=== PATIENT | female | born 1980 | race Caucasian/White ===

== ENCOUNTER 2021-04-18 09:52 | Outpatient (CLI) | payer OTHER | END 2021-04-18 09:53 | disposition home or self-care (01) | LOC: BICRAD 09:52 | PROVIDERS: ATTEND Family Medicine | DX: M54.32 Sciatica, left side (principal) | CPT/HCPCS: 72100 ==

== ENCOUNTER 2021-10-08 10:05 | Inpatient (IN) | payer OTHER ==
[2021-10-08] MEDS ORDERED: Morphine 4 MG/ML VIAL ONE ×2 (10:52→12:32)
[2021-10-08] MEDS ORDERED: Ketorolac Tromethamine 30 MG/ML VIAL ONE (10:52)
[2021-10-08] MEDS ORDERED: Ondansetron PF 4 MG/2 ML Vial IVP PRN (12:41)
[2021-10-08] MEDS ORDERED: Acetaminophen/Codeine 30-300mg Tablet PO PRN (12:41)
[2021-10-08] MEDS ORDERED: Acetaminophen 325 MG TAB PO PRN (12:41)
[2021-10-08] MEDS ORDERED: traMADol HCl 50 MG TAB PO PRN (12:41)
[2021-10-08] MEDS ORDERED: Morphine 2 MG/ML VIAL SLOW IVP PRN (12:41)
[2021-10-08] MEDS ORDERED: Dexamethasone 4 mg/ml Vial SLOW IVP SCH (12:45)
[2021-10-08] MEDS ORDERED: tiZANidine HCl 4 MG TAB PO PRN (12:54)
[2021-10-08 14:03] LABS: #Lymphocytes 1.8 thou/uL (1.20-3.40); #Monocytes 0.8 thou/uL (0.11-0.59); #Neutrophils 8.9 thou/uL (1.40-6.50); %Basophils 0.2 % (0.0-1.0); %Lymphocytes 15.4 % (21.0-51.0); %Monocytes 7.2 % (0.0-10.0); %Neutrophils 77.2 % (42.0-75.0); Hemoglobin 13.1 g/dL (12.0-16.0); Mean Corpuscular HGB CONC 30.9 g/dL (32.0-36.0); Mean Corpuscular Hemoglobin 29.5 pg (27.0-31.0); Mean Corpuscular Volume 95.4 fL (78.0-98.0); Mean Platelet Volume 8.2 fL (7.4-10.4); Platelet Count 374 thou/uL (130-400); Red Blood Cell (RBC) Count 4.45 mill/uL (4.20-5.40); White Blood Cell (WBC) Count 11.5 thou/uL (4.8-10.8)
[2021-10-08 14:22] LABS: Anion Gap 13 mmol/L (10-20); BUN (Urea Nitrogen) 23 mg/dL (7.0-18.7); Calc. Creatinine Clearance 0 mL/min (70-130); Carbon Dioxide 26 mmol/L (22-29); Chloride 101 mmol/L (98-107); Glucose 88 mg/dL (70-105); Potassium 4.2 mmol/L (3.5-5.1); Sodium 136 mmol/L (136-145)
[2021-10-08] MEDS: HYDROcodone/Acetaminophen 7.5/325 mg Tablet PO PRN ×2 (14:37→21:04)
[2021-10-08] MEDS: Sodium Chloride 0.9% 1,000 ML IV SCH (14:45)
[2021-10-08 15:43] LABS: SARS-CoV-2 NAA Rapid Test Not Detected (NotDetected)
[2021-10-08 16:15] LABS: Prothrombin Time 12.8 sec (12.0-14.7)
[2021-10-08 16:16] LABS: PTT 24.7 sec (22.9-36.1)
[2021-10-08 16:17] LABS: BHCG - Serum Negative (NEGATIVE); Pregs Control Background? CLEAR/WHITE (CLR/WHITE); Pregs Control Bar Appear? YES (CONTROL BAR)
[2021-10-08 16:30] VITALS: BMI 30.8
[2021-10-08] MEDS: Morphine 4 MG/ML VIAL SLOW IVP PRN ×5 (16:30→23:05)
[2021-10-08] MEDS: Dexamethasone 4 MG TAB PO SCH ×2 (18:35→23:06)
[2021-10-08] MEDS ORDERED: Ondansetron ODT 8 MG TAB PO PRN (18:43)
[2021-10-09] MEDS: Sodium Chloride 0.9% 1,000 ML IV SCH ×3 (02:51→15:35)
[2021-10-09] MEDS: Morphine 4 MG/ML VIAL SLOW IVP PRN ×8 (04:31→20:53)
[2021-10-09] MEDS: Dexamethasone 4 MG TAB PO SCH ×3 (05:48→17:31)
[2021-10-09] MEDS: Bupropion 150 MG XL TAB PO SCH (08:35)
[2021-10-09] MEDS ORDERED: NORETHINDRONE E ESTRADIOL IRON PO SCH (09:00)
[2021-10-09] MEDS ORDERED: Non-Formulary Item 1 EACH (Esomeprazole Magnesium [Nexium] 20 MG Capsule.Dr) PO SCH (09:00)
[2021-10-09] MEDS ORDERED: Thrombin 5000 UNITS/5 ML VIAL ONE (10:11)
[2021-10-09] MEDS ORDERED: Fentanyl 250 MCG/5 ML VIAL ONE (10:15)
[2021-10-09] MEDS ORDERED: ceFAZolin (BATCH) 2 GM/100 ML BAG ONE (10:25)
[2021-10-09] MEDS ORDERED: Glycopyrrolate 0.2 MG/ML 5 ML SYRINGE ONE (10:44)
[2021-10-09] MEDS ORDERED: Ondansetron PF 4 MG/2 ML Vial ONE (10:44)
[2021-10-09] MEDS ORDERED: Lidocaine 1% PF 5 ML VIAL ONE (10:44)
[2021-10-09] MEDS ORDERED: Rocuronium Bromide 10 MG/ML (10ML VIAL) ONE (10:44)
[2021-10-09] MEDS ORDERED: Dexamethasone 20 MG/5 ML VIAL ONE (10:44)
[2021-10-09] MEDS ORDERED: PROPOFOL 200 MG/20 ML VIAL ONE (10:44)
[2021-10-09] MEDS ORDERED: HYDROmorphone 2 MG/ML VIAL ONE (12:28)
[2021-10-09] MEDS ORDERED: Promethazine HCl 25 MG/ML VIAL IM PRN ×2 (13:01→21:54)
[2021-10-09] MEDS ORDERED: Meperidine HCl/PF 25 MG/ML VIAL SLOW IVP PRN (13:01)
[2021-10-09] MEDS ORDERED: Ondansetron HCl/PF 4 MG/2 ML Vial IVP PRN (13:01)
[2021-10-09] MEDS ORDERED: HYDROmorphone 2 MG/ML VIAL SLOW IVP PRN (13:01)
[2021-10-09] MEDS ORDERED: Promethazine HCl 25 MG/ML VIAL IVPB PRN (13:01)
[2021-10-09] MEDS ORDERED: PACU-Morphine 4MG/ML VIAL SLOW IVP PRN (13:04)
[2021-10-09] MEDS ORDERED: Promethazine HCl 25 MG/ML VIAL ONE (13:26)
[2021-10-09] MEDS ORDERED: Fentanyl 100 MCG/2 ML VIAL ONE (13:36)
[2021-10-09] MEDS ORDERED: HYDROcodone/Acetaminophen 10/325 mg Tablet PO PRN (14:52)
[2021-10-09] MEDS ORDERED: Gabapentin 300 MG CAP PO SCH (15:15)
[2021-10-09] MEDS ORDERED: Ketorolac Tromethamine 30 MG/ML VIAL IVP SCH (15:15)
[2021-10-09] MEDS: Diazepam 5 MG TAB PO PRN (17:32)
[2021-10-09] MEDS: CEFAZOLIN 2 GM, IV Admixture Fee-Chemo 1 UNITS in Sodium Chloride 0.9% 100 ML IVPB SCH (18:57)
[2021-10-09] MEDS: Gabapentin 300 MG CAP PO SCH (20:54)
[2021-10-09] MEDS ORDERED: fentaNYL Citrate/PF 2,000 MCG in Sodium Chloride 0.9% 60 ML IV PRN (21:54)
[2021-10-09] MEDS ORDERED: diphenhydrAMINE 50 MG/ML VIAL IM PRN (21:54)
[2021-10-09] MEDS ORDERED: Ondansetron PF 4 MG/2 ML Vial IVP PRN (21:54)
[2021-10-09] MEDS ORDERED: diphenhydrAMINE 25 MG CAP PO PRN (21:54)
[2021-10-09] MEDS ORDERED: Naloxone HCl 0.4 mg/ml Vial IV PRN (21:54)
[2021-10-09] MEDS ORDERED: diphenhydrAMINE 50 MG/ML VIAL IVP PRN (21:54)
[2021-10-09] MEDS ORDERED: Ketorolac Tromethamine 30 MG/ML VIAL IVP PRN (21:54)
[2021-10-09] MEDS ORDERED: Zolpidem Tartrate 5 MG TAB PO PRN (21:54)
[2021-10-09] MEDS ORDERED: Communication Order-Pharmacy FS SCH (22:00)
[2021-10-10] MEDS: Dexamethasone 4 MG TAB PO SCH ×4 (00:32→18:23)
[2021-10-10] MEDS: CEFAZOLIN 2 GM, IV Admixture Fee-Chemo 1 UNITS in Sodium Chloride 0.9% 100 ML IVPB SCH (03:54)
[2021-10-10] MEDS: Sodium Chloride 0.9% 1,000 ML IV SCH ×2 (05:07→21:20)
[2021-10-10] MEDS: Bupropion 150 MG XL TAB PO SCH (10:07)
[2021-10-10] MEDS: Gabapentin 300 MG CAP PO SCH ×3 (10:08→21:19)
[2021-10-10] MEDS: traMADol HCl 50 MG TAB PO SCH ×2 (13:35→18:23)
[2021-10-10] MEDS: HYDROcodone/Acetaminophen 10/325 mg Tablet PO PRN ×2 (13:42→19:29)
[2021-10-10] MEDS: Fentanyl 100 MCG/2 ML VIAL SLOW IVP PRN ×4 (14:54→22:53)
[2021-10-11] MEDS: Dexamethasone 4 MG TAB PO SCH ×4 (00:28→18:18)
[2021-10-11] MEDS: traMADol HCl 50 MG TAB PO SCH ×5 (00:28→19:50)
[2021-10-11] MEDS: HYDROcodone/Acetaminophen 10/325 mg Tablet PO PRN ×6 (03:34→19:45)
[2021-10-11] MEDS: Fentanyl 100 MCG/2 ML VIAL SLOW IVP PRN ×3 (05:29→16:00)
[2021-10-11] MEDS: Bupropion 150 MG XL TAB PO SCH (09:38)
[2021-10-11] MEDS: Gabapentin 300 MG CAP PO SCH ×3 (09:38→20:48)
[2021-10-11] MEDS ORDERED: Diazepam 5 MG TAB PO SCH (15:38)
[2021-10-11] MEDS: Sodium Chloride 0.9% 1,000 ML IV SCH ×2 (15:55→22:12)
[2021-10-11] MEDS: Diazepam 5 MG TAB PO PRN (22:01)
[2021-10-12] MEDS: traMADol HCl 50 MG TAB PO SCH ×2 (00:14→06:08)
[2021-10-12] MEDS: HYDROcodone/Acetaminophen 10/325 mg Tablet PO PRN ×3 (00:15→09:48)
[2021-10-12] MEDS: Dexamethasone 4 MG TAB PO SCH ×2 (00:15→06:07)
[2021-10-12] MEDS: Diazepam 5 MG TAB PO PRN (06:45)
[2021-10-12 08:35] VITALS: BP 129/82; TEMP 97.9
[2021-10-12] MEDS: Gabapentin 300 MG CAP PO SCH (09:04)
[2021-10-12] MEDS: Bupropion 150 MG XL TAB PO SCH (09:04)
== END 2021-10-12 11:20 | disposition home or self-care (01) | DRG 520 ==
LOC: ERS 10:05 → SURG A 14:08
PROVIDERS: ADMIT Surgery; ATTEND Surgery
PROC: 0SB40ZZ Excision of Lumbosacral Disc, Open Approach (ICD-10-PCS; principal; 2021-10-09)
PROC: 01NB0ZZ Release Lumbar Nerve, Open Approach (ICD-10-PCS; 2021-10-09)
PROC: 01NR0ZZ Release Sacral Nerve, Open Approach (ICD-10-PCS; 2021-10-09)
DX: M51.16 Intervertebral disc disorders with radiculopathy, lumbar region (principal); M79.7 Fibromyalgia; G47.00 Insomnia, unspecified; F32.A Depression, unspecified; F17.210 Nicotine dependence, cigarettes, uncomplicated; Z20.822 Contact with and (suspected) exposure to COVID-19; F41.9 Anxiety disorder, unspecified; Z79.899 Other long term (current) drug therapy; Z90.89 Acquired absence of other organs
CPT/HCPCS: 36415; 72148; 76000; 80048; 84703; 85025; 85610; 85730; 96374; 96375; 96376; J0690; J1100; J1170; J1885; J2270; J2405; J2550; J2704; J3010; J3370; J3490; J7050; J8540; U0002

== ENCOUNTER 2025-06-20 18:06 | Emergency (ER) | payer OTHER ==
[~2025-06-20 18:06] MED LIST: Iopamidol-370 76% 500 ML MDV (1 ML CHARGE) ONE
[2025-06-20 18:59] LABS: Pregnancy Test - Urine (BHCG) Negative (Negative); Pregu Control Background? CLEAR/WHITE (CLR/WHITE); Pregu Control Bar Appear? YES (CONTROL BAR)
[2025-06-20 19:11] LABS: CAUTI Indications for Culture Pelvic or flank pain; Glucose, Urine (Dipstick) Normal (Negative); Leukocyte 500 Leu/uL (Negative); Protein, Urine (Dipstick) 50 mg/dL (Neg-Trace); RBC/HPF 0-3 HPF (0-3); Specific Gravity, Urine 1.046 (1.002-1.036)
[2025-06-20 19:24] LABS: Bacteria/HPF 1+ HPF (None Seen)
[2025-06-20 19:26] LABS: Urine Culture Reflex No No
[2025-06-20] MEDS ORDERED: Ondansetron PF 4 MG/2 ML Vial ONE (19:34)
[2025-06-20 19:42] LABS: #Basophils Less than 0.03 10x3/uL (0.0-0.2); #Eosinophils Less than 0.03 10x3/uL (0.0-0.7); #Monocytes 0.37 10x3/uL (0.11-0.59); #Neutrophils 12.19 10x3/uL (1.40-6.50); %Basophils 0.1 % (0.0-1.0); %Eosinophils 0.0 % (0.0-10.0); %Lymphocytes 6.2 % (21.0-51.0); %Monocytes 2.8 % (0.0-10.0); %Neutrophils 90.6 % (42.0-75.0); Hematocrit 40.2 % (36.0-47.0); Hemoglobin 12.9 g/dL (12.0-16.0); Mean Corpuscular Hemoglobin 27.2 pg (27.0-31.0); Mean Corpuscular Volume 84.8 fL (78.0-98.0); Platelet Count 501 10x3/uL (130-400); Red Blood Cell (RBC) Count 4.74 mill/uL (4.20-5.40); White Blood Cell (WBC) Count 13.45 10x3/uL (4.8-10.8)
[2025-06-20 20:00] LABS: ALT (SGPT) 97 U/L (Less than 34); AST (SGOT) 45 U/L (11-34); Albumin 4.1 g/dL (3.1-4.5); Alkaline Phosphatase 64 U/L (40-110); Anion Gap 16 mmol/L (10-20); BUN (Urea Nitrogen) 19 mg/dL (7.0-18.7); Bilirubin, Total 0.3 mg/dL (0.3-1.2); Calc. Creatinine Clearance 0 mL/min (70-130); Calcium 9.6 mg/dL (7.8-10.44); Carbon Dioxide 21 mmol/L (22-29); Chloride 104 mmol/L (98-107); Globulin 3.4 g/dL (2.4-3.5); Glucose 130 mg/dL (70-105); Lipase 29 U/L (8-78); Potassium 3.9 mmol/L (3.5-5.1); Sodium 137 mmol/L (136-145)
[2025-06-20] MEDS ORDERED: HYDROmorphone 0.5 MG/0.5 ML SYRINGE ONE (20:08)
[2025-06-20] MEDS ORDERED: Mag-Al 1200 mg/1200 mg/30 ML UDCUP ONE (21:41)
[2025-06-20] MEDS ORDERED: Lidocaine Viscous Sol 2% 15 ml UD Cup ONE (21:41)
[2025-06-20] MEDS ORDERED: HYDROcodone/Acetaminophen 7.5/325 mg Tablet ONE (22:34)
== END 2025-06-20 23:11 | disposition home or self-care (01) ==
LOC: ERS 18:06
DX: R10.13 Epigastric pain (principal); I10 Essential (primary) hypertension; M79.7 Fibromyalgia; E66.01 Morbid (severe) obesity due to excess calories; F17.290 Nicotine dependence, other tobacco product, uncomplicated; Z68.41 Body mass index [BMI] 40.0-44.9, adult; Z79.899 Other long term (current) drug therapy
CPT/HCPCS: 74177; 80053; 81001; 81025; 83690; 85025; 96374; 96375; J1171; J2270; J2405; Q9967